=== PATIENT | male | born 1950 ===

== ENCOUNTER 2016-11-24 10:58 | Emergency (ER) | payer MEDICARE, OTHER ==
--- NOTE | ~2016-11-24 | ER ---
PATIENT'S NAME: R[facility]RIGO [facility]STRO [facility] AGE: 66 Y [address] ROOM: [place] [address] LOCATION: ED ADMIT DATE: 11/24/2016 ER/Outpatient Report DISCHARGE DATE: 11/24/2016 FAMILY PHYSICIAN: Geovanny Vincent MD ATTENDING PHYSICIAN: Dank Tubbs CHIEF COMPLAINT: Confusion. HISTORY OF PRESENT ILLNESS: The patient arrives by ambulance from [place]. He came from his assisted living facility. They were concerned because he was trying to put on his pants twice today and tried to put on shoes over his shoes. He has a history of liver failure and hyperammonemia. No other changes. The facility caregiver states he has otherwise been acting normally, but perhaps slightly more sleepy today. No known recent falls or other injuries. PAST MEDICAL HISTORY: Documented on the record and reviewed by me. SOCIAL HISTORY: Documented on the record and reviewed by me. MEDICATIONS: Documented on the record and reviewed by me. ALLERGIES: DOCUMENTED ON THE RECORD AND REVIEWED BY ME. REVIEW OF SYSTEMS: All systems reviewed and negative except as noted in the HPI. PHYSICAL EXAMINATION: VITAL SIGNS: Blood pressure 176/86, pulse 77, respiratory rate 20, temperature 97.6, and SpO2 is 96% on room air. Pain 0/10. GENERAL: Age-appropriate male. No obvious pain or distress. Semirecumbent on the exam table. NEURO: The patient is awake and alert. He is oriented to person, place, year, month, and day of the week, but not to number. He has no focal deficits on exam. Moves all extremities to command. No asymmetry appreciated. HEENT: Normocephalic, atraumatic. Acutely appears to have some prior trauma to the right temporal region. NECK: Supple. Trachea is midline. Oropharynx is clear. Moist with no erythema or exudates. CHEST: Heart is regular rate and rhythm with no obvious murmurs. PATIENT'S NAME: RODRIGO CASTRO [facility] AGE: 66 Y [address] ROOM: [place], [place] [address] LOCATION: ED ADMIT DATE: 11/24/2016 ER/Outpatient Report DISCHARGE DATE: 11/24/2016 FAMILY PHYSICIAN: Geovanny Vincent MD ATTENDING PHYSICIAN: Dank Tubbs LUNGS: Clear to auscultation bilateral in all lung sterling. ABDOMEN: Soft, nontender, and nondistended. No rebound or guarding. BACK: Normal to inspection and palpation. No CVA tenderness or spinal tenderness. EXTREMITIES: Warm and well perfused. No pain or tenderness to palpation of all extremities in all joints. SKIN: Appears to be grossly intact with no obvious rashes. LABORATORY DATA AND X-RAYS: Head CT is unremarkable for acute pathology per Radiology, unchanged compared to prior exam. Labs: Ammonia is 169. CMS is notable for no significant abnormalities, mild hypokalemia at 3.5. Glucose is 190. No renal or LFT abnormalities. Free T4 and TSH are within appropriate limits. CBC with a white count of 3.6. INR is 1.27. Lactate is 2.4. Urinalysis with no evidence of infection. Some glucosuria appreciated. IMPRESSION: Hyperammonemia with mild confusion. EMERGENCY DEPARTMENT COURSE: The patient is seen and evaluated as above. He had a slightly elevated lactate, treated with 1 L of fluid. He was given lactulose in the ER. He was deemed stable, as there are no significant mental status changes that are concerning and was discharged to the care of his son. He should take lactulose 3-4 times a day to titrate to 3 bowel movements daily until back to normal. Close followup and guidance by local physician. Return immediately if worse. MD DARIO LOZOYA/maria elena /[id number] d: 11/24/16 2231 t: 11/25/16 1126, OUTPATIENT REPORT
[~2016-11-24 10:58] MED LIST: ADVIL200 MG PO; ALDACTONE50 MG PO; AMBIEN10 MG PO; ANTIVERT **IA12.5 MG PO; ANTIVERT12.5 MG PO; ARTANE2 MG PO; BENTYL10 MG PO; COLACE100 MG PO; FLOMAX0.4 MG PO; FOSINOPRIL SODI20 MG PO; GLUCOSE4 GM PO; IMODIUM A-D2 MG PO; INDERAL10 MG PO; INVEGA6 MG PO; INVEGA9 MG PO; KLONOPIN0.5 M1 PO; LACTULOSE10 GM/15 M PO; LANTUS SOL100 UNIT/1 SUB-Q; LASIX40 MG PO; LIPITOR20 M1 PO; MAALOX LIQ UNIT30 ML PO; MILK OF MA400 MG/5 M PO; NORCO 5-325 MG1 TAB PO; NORVASC10 MG PO; NOVOLOG100 UNIT/M SUB-Q; PALIPERIDONE ER3 MG PO; POLYETHYLENE GL17 GM PO; PRILOSEC20 M1 PO; PRILOSEC20 MG PO; PRISTIQ ER100 MG PO; PRISTIQ50 MG PO; REMERON 30 MG30 MG PO; REMERON15 MG PO; ROBITUSSIN DM120 ML PO; SEROQUEL400 MG PO; TRIAMCINOLONE454 GM TOP; TYLENOL325 MG PO; ULTRAM50 MG PO; VITAMIN D1000 UNI1 PO; WELLBUTRIN SR150 MG PO; WELLBUTRIN XL150 M1 PO; XIFAXAN550 MG PO; XIGDUO XR 5 MG1 EACH PO
[2016-11-24 11:34] LABS: BASOPHIL % 1.1 %; EOSINOPHIL # 0.1 K/uL (0.0-0.5); EOSINOPHIL % 2.5 %; HEMATOCRIT 39.2 % (37.0-53.0); HEMOGLOBIN 13.1 g/dL (11.0-16.0); LYMPHOCYTE # 0.8 K/uL (0.8-4.0); LYMPHOCYTE % 20.6 %; MCH 31.5 pg (27.0-34.0); MCHC 33.4 gm/dL (32.0-36.5); MCV 94.2 fl (83.0-98.0); MONOCYTE # 0.6 K/uL (0.0-1.0); MONOCYTE % 15.9 %; MPV 11.2 fl (9.4-12.4); NEUTROPHIL # (ANC) 2.2 K/uL (1.4-9.0); NEUTROPHIL % 59.9 %; NRBC % 0 /100WBC (0-0.00); PLATELET COUNT 67 K/uL (150-450); RBC 4.16 M/uL (3.50-5.50); RDW-CV 14.5 % (11.9-14.6); WBC 3.6 K/uL (4.0-11.0)
[2016-11-24 11:43] LABS: INR - (THERAPEUTIC) 1.27 (0.92-1.07); PROTIME 13.4 SECONDS (9.8-11.4); PTT 30 SECONDS (25-32)
[2016-11-24 11:51] LABS: BILIRUBIN URINE NEGATIVE (NEGATIVE); BLOOD URINE 10 /UL (NEGATIVE); COLOR URINE YELLOW (YELLOW); GLUCOSE URINE 1000 mg/dL (NEGATIVE); KETONE URINE 5 mg/dL (NEGATIVE); LEUKOCYTES URINE NEGATIVE /UL (NEGATIVE); NITRITE URINE NEGATIVE (NEGATIVE); PROTEIN URINE NEGATIVE (NEGATIVE); SPEC GRAVITY URINE 1.015 (1.003-1.035); TURBIDITY URINE CLEAR (CLEAR); UROBILINOGEN URINE NORMAL (NORMAL)
[2016-11-24 12:00] LABS: ALBUMIN 3.3 gm/dL (3.5-5.0); ALK PHOS 97 IU/L (33-138); ALT 32 IU/L (12-78); ANION GAP 14.5 (10.0-19.0); AST 34 IU/L (10-40); BLOOD UREA NITROGEN 9 mg/dL (6-24); CALCIUM 8.6 mg/dL (8.5-10.5); CHLORIDE 110 mMol/L (96-110); CO2 21 mMol/L (22-32); CREATININE 0.7 mg/dL (0.6-1.3); ESTIMATED GFR (MDRD EQUATION) > 60; POTASSIUM 3.5 mMol/L (3.7-5.1); SODIUM 142 mMol/L (135-145); TOTAL BILIRUBIN 1.3 mg/dL (0.0-1.5); TOTAL PROTEIN 7.2 g/dL (6.0-8.4)
[2016-11-24 12:12] LABS: BACTERIA URINE NEGATIVE (NEGATIVE); EPITHELIAL URINE NEGATIVE #/HPF (NEGATIVE); RBC URINE RARE #/HPF (NEGATIVE); WBC URINE NEGATIVE #/HPF (NEGATIVE)
[2016-11-24 12:13] LABS: MUCUS URINE 1+ (NEGATIVE)
== END 2016-11-24 14:28 | disposition disaster alternative care site (69) ==
LOC: GMED 10:58
PROVIDERS: Emergency Medicine
DX: E72.20 Disorder of urea cycle metabolism, unspecified (principal); R41.0 Disorientation, unspecified; I11.9 Hypertensive heart disease without heart failure; E11.40 Type 2 diabetes mellitus with diabetic neuropathy, unspecified; M10.9 Gout, unspecified; Z79.4 Long term (current) use of insulin; Z79.899 Other long term (current) drug therapy; Z86.69 Personal history of other diseases of the nervous system and sense organs; Z95.1 Presence of aortocoronary bypass graft
CPT/HCPCS: J7030

== ENCOUNTER → 2016-11-26 | Day surgery (SDC) | payer MEDICARE, OTHER ==
[~2016-11-26] VITALS: Ht 170.2 cm; Wt 97.3 kg
== END | disposition disaster alternative care site (69) ==
LOC: GPOC 11-19 09:00 → GEND 07:41 → GPOC 08:00 → EDSTATUS 08:00
PROC: 0DJ08ZZ Inspection of Upper Intestinal Tract, Via Natural or Artificial Opening Endoscopic (ICD-10-PCS; principal; 2016-11-26)
DX: K74.60 Unspecified cirrhosis of liver (principal); I85.10 Secondary esophageal varices without bleeding; K31.89 Other diseases of stomach and duodenum; K72.00 Acute and subacute hepatic failure without coma; K72.10 Chronic hepatic failure without coma; I25.10 Atherosclerotic heart disease of native coronary artery without angina pectoris; I10 Essential (primary) hypertension; E11.9 Type 2 diabetes mellitus without complications; E78.5 Hyperlipidemia, unspecified; Z79.4 Long term (current) use of insulin; Z79.899 Other long term (current) drug therapy
CPT/HCPCS: J2001; J7030